=== PATIENT | female | born 1965 | race Caucasian/White ===

== ENCOUNTER 2019-01-05 05:56 | Day surgery (SDC) | payer MEDICAID ==
[~2019-01-05] VITALS: Ht 170.2 cm; Wt 95.7 kg
[2019-01-05] MEDS ORDERED: fentaNYL 0.05 MG/ML VIAL ONE (07:48)
[2019-01-05] MEDS ORDERED: LIDOCAINE 2% 100 MG/5 ML UJET TP ONE (07:48)
[2019-01-05] MEDS ORDERED: fentaNYL 0.05 MG/ML VIAL IVP ONE (08:15)
== END 2019-01-05 08:33 | disposition home or self-care (01) ==
LOC: MOR 05:56 → MMU 06:09 → MOR 08:33
PROVIDERS: ATTEND Internal Medicine Gastroenterology
DX: Z12.11 Encounter for screening for malignant neoplasm of colon (principal); K57.30 Diverticulosis of large intestine without perforation or abscess without bleeding; I10 Essential (primary) hypertension; Z98.890 Other specified postprocedural states; Z79.899 Other long term (current) drug therapy
CPT/HCPCS: 45378; J3010

== ENCOUNTER 2022-08-04 07:56 | Day surgery (SDC) | payer MEDICAID ==
[~2022-08-04] VITALS: Ht 167.6 cm; Wt 59.0 kg
[2022-08-04] MEDS ORDERED: diphenhydrAMINE 50 MG/ML VIAL ONE (08:28)
[2022-08-04] MEDS ORDERED: fentaNYL citrate 0.05 MG/ML VIAL ONE (08:28)
[2022-08-04] MEDS ORDERED: MIDAZOLAM 2 MG/2 ML VIAL ONE (08:29)
[2022-08-04] MEDS ORDERED: MIDAZOLAM 2 MG/2 ML VIAL IVP ONE (09:00)
[2022-08-04] MEDS ORDERED: fentaNYL citrate 0.05 MG/ML VIAL IVP ONE (09:00)
== END 2022-08-04 09:45 | disposition home or self-care (01) ==
LOC: MDS 07:56 → MMU 07:57 → MDS 09:45
PROVIDERS: ATTEND Internal Medicine Gastroenterology
DX: F45.8 Other somatoform disorders (principal); K21.9 Gastro-esophageal reflux disease without esophagitis; F41.9 Anxiety disorder, unspecified; G47.00 Insomnia, unspecified; Z98.84 Bariatric surgery status; Z20.822 Contact with and (suspected) exposure to COVID-19
CPT/HCPCS: 43239; 87426; J2250; J3010; J1200